=== PATIENT | female | born 1975 | race Caucasian/White ===

== ENCOUNTER → 2016-10-16 | Outpatient (CLI) | payer BC ==
[~2016-10-16] MED LIST: ALBUTEROL17 GM; BACTRIM DS TABL1 TA1 PO; BACTRIM DS TABL1 TA2 PO; BENZONATATE; BUSPAR15 M1 PO; CIPRO500 MG/5 M PO; DESYREL50 M1 PO; DICLOFENAC SODI50 MG PO; ELIMITE60 GM TOP; FLEXERIL PO; FLEXERIL10 MG PO; INDOCIN SR75 MG PO; LORTAB 5/500 TA1 TA1; LORTAB 5/500 TA1 TA1 PO; MACROBID100 M1 PO; MEDROL; MEDROL DOSEPAK4 MG PO; NAPROXEN PO; NO MEDICATIONS; NORCO 5/325 TAB1 TAB PO; NORCO1 TAB 10/3 PO; PRILOSEC20 MG; TRAMADOL HCL50 M1 PO; TUSSIN DM SYRU120 ML PO; TYLENOL #3 PO; ULTRAM PO; VICODIN 5/1 TAB 5/50; VOLTAREN50 MG PO; VOLTAREN75 MG PO; ZITHROMAX; ZOFRAN; ZOFRAN ODT4 MG; ZOFRAN ODT4 MG SL; ZOFRANODT PO
--- NOTE | ~2016-10-16 | MR109 ---
[facility]. [facility] A Service of [facility] RADIOLOGY TEXT RESULTS PATIENT: BEN BENTON LOCATION: [facility] : 77 UNIT #: [id number] AGE: [address]: HUY GLASS MD SEX: F ORDER DR: [id number] [address] [address] [id number] O MR#: [id number] Acc #: [id number] NAME: BEN BENTON : 1975 SEX: F STUDY DATE/TIME: 10/16/2016 9:29 UNIT: [facility] ROOM: STUDY DESCRIPTION: MR Bill Reddy Wo Cont Lt Attending Physician: Huy Glass Referring Physician: Huy Glass Ordering Physician: Jayda Glass M.D. Primary Care Physician: Huy Glass MRI CENTER REPORT This report is preliminary unless electronic signature is present. EXAM MRI left foot without contrast HISTORY [id number] female complains of pain metatarsal region, base of fifth metatarsal, evaluate for stress fracture. States pain after 3 weeks of treadmill use. FINDINGS Multiplanar multiecho imaging was performed of the left foot utilizing a high field magnet and dedicated protocol. Gel capsule was placed over the lateral aspect of the foot corresponding to site of patient's maximal pain. Bone structure alignment appears normal. A small amount of subchondral cystic change and edema noted base of the third metatarsal bordering the tarsometatarsal joint and may be degenerative in nature. No marrow edema is identified to suggest stress fracture or stress reaction. Plantar fascia intrinsic musculature appears normal. Visualized foot tendons appear normal. A small amount of soft tissue edema noted along the posterior medial and anterior lateral aspect of the ankle. IMPRESSION 1. No MRI findings to suggest a stress fracture. 2. Small amount of subchondral cystic change and edema base of the third metatarsal at the tarsometatarsal joint most likely degenerative in nature. 3. A small amount nonspecific soft tissue swelling about the ankle. Dictated by.Ashley Joel M.D. [facility] A Service of [facility] RADIOLOGY TEXT RESULTS PATIENT: BEN BENTON LOCATION: [facility] : 77 UNIT #: [id number] AGE: [address]: HUY GLASS MD SEX: F ORDER DR: THIS IS AN ELECTRONICALLY VERIFIED REPORT Luciano Joel M.D. at 10/17/2016 3:32 PM Autumn TD: 10/17/2016 10:16 JOB #: [id number] MRI CENTER REPORT Page 1 of 1
== END | disposition home or self-care (01) ==
LOC: SMRI 08:59
DX: M89.8X7 Other specified disorders of bone, ankle and foot (principal); M79.672 Pain in left foot; R60.0 Localized edema; M79.89 Other specified soft tissue disorders
CPT/HCPCS: 73718